=== PATIENT | male | born 1985 | race Caucasian/White ===

== ENCOUNTER 2019-01-25 08:32 | Outpatient (REF) | payer OTHER, SELFPAY ==
[2019-01-29 13:23] LABS: Chlamydia Result Negative (Negative); GC Result Negative (Negative)
== END 2019-01-25 08:52 ==
LOC: NCHCN 08:32
PROVIDERS: PCP Internal Medicine; Visit Provider Internal Medicine
DX: Z00.00 Encounter for general adult medical examination without abnormal findings (principal); Z11.3 Encounter for screening for infections with a predominantly sexual mode of transmission
CPT/HCPCS: 87491; 87591

== ENCOUNTER 2021-08-21 18:40 | Outpatient (REF) | payer OTHER, SELFPAY ==
[2021-08-21 20:13] LABS: Calculated LDL 123 mg/dL (<100); Cholesterol 186 mg/dL (<200); Glucose 78 mg/dL (74-106); HDL Cholesterol 45 mg/dL (40-60); Triglyceride 90 mg/dL (<150)
== END 2021-08-21 18:41 | disposition home or self-care (01) ==
LOC: NCHCN 18:40
PROVIDERS: PCP Internal Medicine; Visit Provider Internal Medicine
DX: Z00.00 Encounter for general adult medical examination without abnormal findings (principal); Z13.1 Encounter for screening for diabetes mellitus; Z13.220 Encounter for screening for lipoid disorders
CPT/HCPCS: 80061; 82947

== ENCOUNTER 2023-08-22 13:03 | Outpatient (REF) | payer OTHER, SELFPAY ==
[2023-08-22 19:46] LABS: ALT 31 U/L (16-63); Creatine Kinase 144 U/L (39-308); Glucose 105 mg/dL (74-106)
[2023-08-22 20:00] LABS: Calculated LDL 105 mg/dL (<100); Cholesterol 173 mg/dL (<200); HDL Cholesterol 58 mg/dL (40-60); Triglyceride 50 mg/dL (<150)
== END 2023-08-22 13:04 | disposition home or self-care (01) ==
LOC: NCHCN 13:03
PROVIDERS: PCP Internal Medicine; Visit Provider Internal Medicine
DX: Z00.00 Encounter for general adult medical examination without abnormal findings (principal)
CPT/HCPCS: 80061; 82550; 82947; 84460